=== PATIENT | male | born 1970 | race Caucasian/White ===

== ENCOUNTER 2025-05-04 12:48 | Emergency (ER) | payer BC, SELFPAY ==
[2025-05-04 12:50] VITALS: BP 147/96; PULSE 64; RESP 15; TEMP 37; O2SAT 95
--- NOTE | 2025-05-04 14:06 | ED.GENADUL_ITS ---
Discharge Plan Disposition Patient Disposition: Home Condition: Stable Discharge Details Clinical Impression: Bloody stools, Acute hemorrhoid Primary Care Provider: Unknown,Unknown ED Provider: Gino Logan Discharge Instructions Additional Instructions: Your blood work did not show any concerning findings at this time. I placed you on our follow-up list to follow-up with general surgery for possible colonoscopy, you should receive a phone call with an appointment for this. If you feel more ill or have new symptoms such as severe abdominal pain or shortness of breath return to the emergency department for reevaluation. HPI General Mode of arrival: ambulatory . Date/Time Provider Initiated Documentation: 05/04/25 12:59 . Limitations to Documentation: no limitations . Information obtained by: patient . History of Present Illness 55 year old M presents to the emergency department with the chief complaint of blood in stool, described as mild, Patient started experiencing this day(s) (4) and it has been intermittent. No relieving factors improve symptom(s), No exacerbating factors reported . Patient notes denies chest pain, fever/chills, nausea/vomiting and shortness of breath. Patient did receive the following t reatments prior to arrival, none Related Data Allergies Allergy/AdvReac Type Severity Reaction Status Date / Time No Known Allergies Allergy Unverified 05/04/25 12:54 General Stated Complaint: GI Bleed MANA: 3 Review of Systems All systems reviewed & are unremarkable except as noted in HPI and below Constitutional Constitutional: Denies chills, Denies fever(s) and Denies weakness Cardiovascular Cardiovascular: Denies chest pain and Denies dyspnea Respiratory Respiratory: Denies cough and Denies dyspnea Gastrointestinal Gastrointestinal: Denies abdominal pain, Reports hematochezia, Denies nausea and Denies vomiting Neurologic Neurologic: Denies weakness Exam Const General: no acute distress Orientation: alert [facility] Head: normal to inspection Ears: external ears normal General nose exam: external nose normal Mouth: moist mucous membranes Neck Neck: normal visual inspection Resp Effort & Inspection: normal respiratory effort and able to speak in complete sentences Cardio Rate: regular rate GI Palpation: soft and nontender Rectal Exam: hemorrhoids Skin General skin exam: no rashes or lesions noted Neuro General: patient alert and patient oriented x3 Extrem General: normal to inspection Psych Mental Status: mental status grossly normal Course Vital Signs Vital signs: Vital Signs Temperature 37.0 C 05/04/25 12:50 Pulse 64 05/04/25 12:50 Respiratory Rate 15 05/04/25 12:50 Blood Pressure 147/96 H 05/04/25 12:50 Pulse Oximetry 95 05/04/25 12:50 Temperature 37.0 C 05/04/25 12:50 Temperature Source Temporal Artery Scan 05/04/25 12:50 Pulse 64 05/04/25 12:50 Respiratory Rate 15 05/04/25 12:50 Blood Pressure 147/96 H 05/04/25 12:50 Blood Pressure Position Sitting 05/04/25 12:50 Pulse Oximetry 95 05/04/25 12:50 Oxygen Delivery Method Room Air 05/04/25 12:50 Oxygen Flow Rate 0 05/04/25 12:50 Pain Level 0 05/04/25 12:50 Medical Decision Making 55-year-old male comes in with intermittent bloody stools since December per patient. Denies any pain with wiping. Denies any abdominal pain, difficulty breathing, nausea vomiting, fevers. He is well-appearing and speaking in full s entences. Hemodynamically stable. He has no abdominal tenderness. On rectal exam he has a small nonthrombosed hemorrhoid at the 12 o'clock position. There is no active bleeding on exam. I suspect he is bleeding from external and possibly internal hemorrhoids. Will check CBC and BMP in the reassuring likely refer to general surgery for possible colonoscopy. Labs benign and patient is stable. I made a referral to see general surgery as an outpatient. Return precautions given Differential Diagnosis Differential Diagnosis: hemorrhoid, internal hemorrhoid PFSH All Active Problems (Updated 05/04/25 @ 14:49 by Gino Logan MD) Acute hemorrhoid (Acute) Bloody stools (Acute) Social History Smoking risk assessment performed?: No
[2025-05-04 14:35] LABS: Abs Immature Grans 0.03 10^3/uL (0.0-0.06); HCT 46.0 % (40.0-50.0); HGB 15.9 g/dL (13.5-17.5); Immature Grans % 0.5 %; MCH 30.6 pg (27.0-33.0); MCHC 34.6 % (32.0-36.0); MCV 89 fL (80-95); MPV 9.0 fL (8.0-11.0); Platelet Count 254 10^3/uL (130-400); RBC 5.19 10^6/uL (4.36-5.78); RDW 12.5 % (11.8-14.1); RDW-SD 41.1 fL; WBC 6.54 10^3/uL (4.4-10.8)
[2025-05-04 14:44] LABS: Anion Gap 8.6 mmol/L (3-11); BUN 15 mg/dL (7-18); CO2 27.4 mmol/L (21.0-32.0); Calcium 9.2 mg/dL (8.5-10.1); Chloride 103 mmol/L (98-107); Estimated GFR 78.79 (mL/min/1.73m2); Glucose 86 mg/dL (74-106); Potassium 4.4 mmol/L (3.5-5.1); Sodium 139 mmol/L (136-145)
== END 2025-05-04 15:16 | disposition home or self-care (01) ==
PROVIDERS: Emergency Provider Emergency Medicine
DX: K92.1 Melena (principal); K64.8 Other hemorrhoids
CPT/HCPCS: 99283; 99282; 80048; 85025